=== PATIENT | male | born 1950 | race Two or more races ===

== ENCOUNTER 2021-04-11 06:19 | Day surgery (SDC) | payer OTHER ==
[~2021-04-11 06:19] MED LIST: CRESTOR20 MG PO; ZESTRIL20 MG PO
[2021-04-11] MEDS ORDERED: PERCOCET 5-3251 EACH PO (12:46)
[2021-04-11] MEDS ORDERED: COLACE100 MG PO (12:46)
[2021-04-11] MEDS ORDERED: NEURONTIN600 M1 PO (12:46)
== END 2021-04-11 14:55 | disposition home or self-care (01) ==
LOC: CIR.AMB 06:19
PROVIDERS: ATTEND Surgery
DX: K40.90 Unilateral inguinal hernia, without obstruction or gangrene, not specified as recurrent (principal); Z20.822 Contact with and (suspected) exposure to COVID-19